=== PATIENT | female | born 2000 | race Caucasian/White ===

== ENCOUNTER 2022-11-27 22:36 | Emergency (ER) | payer BC ==
[2022-11-27 23:00] LABS: #Eosinphils 0.1 thou/uL (0.0-0.7); #Monocytes 0.7 thou/uL (0.11-0.59); #Neutrophils 3.7 thou/uL (1.40-6.50); %Basophils 0.5 % (0.0-1.0); %Eosinophils 1.9 % (0.0-10.0); %Lymphocytes 29.3 % (28.0-48.0); %Monocytes 10.4 % (0.0-4.0); %Neutrophils 57.7 % (31.0-61.0); Hemoglobin 12.4 g/dL (12.0-16.0); Mean Corpuscular HGB CONC 32.4 g/dL (32.0-36.0); Mean Corpuscular Hemoglobin 29.5 pg (25.0-35.0); Mean Corpuscular Volume 91.2 fl (78.0-98.0); Mean Platelet Volume 9.3 fL (7.4-10.4); Platelet Count 329 10x3/uL (130-400); RBC Distribution Width 12.8 % (11.5-14.5); White Blood Cell (WBC) Count 6.3 10x3/uL (4.8-10.8)
[2022-11-27 23:01] LABS: Bacteria/HPF None Seen HPF (None Seen); Bilirubin Negative (Negative); Blood, Urine Negative (Negative); CAUTI Indications for Culture Pelvic or flank pain; Clarity Clear (Clear); Glucose, Urine (Dipstick) Normal (Negative); Ketone, Urine Negative (Negative); Leukocyte Negative Leu/uL (Negative); Nitrite Negative (Negative); Protein, Urine (Dipstick) Negative (Neg-Trace); RBC/HPF 0-3 HPF (0-3); Specific Gravity, Urine 1.013 (1.002-1.036); Squamous Epithelial 0-3 HPF (0-3); Urobilinogen Normal mg/dL (Less than 2); WBC/HPF 0-3 HPF (0-3)
[2022-11-27 23:02] LABS: Pregnancy Test - Urine (BHCG) Negative (Negative); Pregu Control Background? CLEAR/WHITE (CLR/WHITE); Pregu Control Bar Appear? YES (CONTROL BAR); Specific Gravity 1.013 (1.002-1.036)
[2022-11-27 23:04] LABS: Urine Culture Reflex No No
[2022-11-27 23:22] LABS: ALT (SGPT) 30 U/L (8-55); AST (SGOT) 30 U/L (5-34); Albumin 4.4 g/dL (3.5-5.0); Alkaline Phosphatase 80 U/L (40-100); Anion Gap 11 mmol/L (10-20); BUN (Urea Nitrogen) 8 mg/dL (7.0-18.7); Bilirubin, Total 0.3 mg/dL (0.2-1.2); Calc. Creatinine Clearance 0 mL/min (70-130); Calcium 9.5 mg/dL (7.8-10.44); Carbon Dioxide 28 mmol/L (22-29); Chloride 106 mmol/L (98-107); Estimated GFR 128; Globulin 2.7 g/dL (2.4-3.5); Glucose 100 mg/dL (70-105); Potassium 3.6 mmol/L (3.5-5.1); Protein, Total 7.1 g/dL (6.0-8.3); Sodium 141 mmol/L (136-145)
[2022-11-28] MEDS ORDERED: Ibuprofen 200 MG TAB ONE (02:35)
== END 2022-11-28 02:48 | disposition home or self-care (01) ==
LOC: ERS 22:36
DX: R10.30 Lower abdominal pain, unspecified (principal); R11.0 Nausea
CPT/HCPCS: 36415; 80053; 81001; 81025; 85025; 99284

== ENCOUNTER 2024-05-12 07:15 | Inpatient (IN) | payer BC ==
[2024-05-12 08:41] VITALS: BMI 30.1
[2024-05-12] MEDS ORDERED: Acetaminophen 325 MG TAB PO PRN (10:45)
[2024-05-12] MEDS ORDERED: Sodium Chloride 0.9% 1,000 ML IV SCH (10:45)
[2024-05-12] MEDS ORDERED: Acetaminophen 650 MG Suppository PR PRN (10:45)
[2024-05-12] MEDS ORDERED: Ondansetron PF 4 MG/2 ML Vial IVP PRN (10:45)
[2024-05-12] MEDS ORDERED: Morphine 2 MG/ML VIAL SLOW IVP PRN (10:49)
[2024-05-12] MEDS ORDERED: Ondansetron PF 4 MG/2 ML Vial ONE (12:20)
[2024-05-12] MEDS ORDERED: fentaNYL 50 mcg/mL 1 mL Vial ONE ×2 (12:20→13:19)
[2024-05-12] MEDS ORDERED: PHENYLEPHRINE-NS 100 MCG/ML 10 ML SYRINGE ONE (12:20)
[2024-05-12] MEDS ORDERED: Dexamethasone 20 MG/5 ML VIAL ONE (12:20)
[2024-05-12] MEDS ORDERED: PROPOFOL 20 ML ONE (12:20)
[2024-05-12] MEDS ORDERED: Midazolam HCl 2 mg/2 ml Vial ONE (12:20)
[2024-05-12] MEDS ORDERED: Rocuronium Bromide 10 MG/ML (10ML VIAL) ONE (12:20)
[2024-05-12] MEDS ORDERED: GLYCOPYRROLATE/PF 0.2 MG/ML VIAL ONE (12:20)
[2024-05-12] MEDS ORDERED: Lidocaine 2% PF 5 ML VIAL ONE (12:20)
[2024-05-12] MEDS ORDERED: Indomethacin 50 MG SUPP ONE (12:26)
[2024-05-12] MEDS ORDERED: Iopamidol 30 ML ONE (12:28)
[2024-05-12] MEDS ORDERED: SUGAMMADEX SODIUM 200 MG/2 ML VIAL ONE (12:59)
[2024-05-12] MEDS ORDERED: Glycopyrrolate 0.2 MG/ML 5 ML SYRINGE ONE (13:28)
[2024-05-12] MEDS ORDERED: Albuterol HFA (OR) 200 PUFF INH ONE (13:28)
[2024-05-12] MEDS ORDERED: diphenhydrAMINE 50 MG/ML VIAL ONE (13:30)
[2024-05-12] MEDS ORDERED: Famotidine/PF 20 mg/2ml Vial ONE (14:44)
[2024-05-12] MEDS: Lactated Ringer's 1,000 ML IV SCH (16:23)
[2024-05-12] MEDS: Famotidine/PF 20 mg/2ml Vial SLOW IVP SCH (20:33)
[2024-05-13 04:59] LABS: #Basophils Less than 0.03 10x3/uL (0.0-0.2); %Basophils 0.3 % (0.0-1.0); %Eosinophils 1.8 % (0.0-10.0); %Lymphocytes 16.4 % (21.0-51.0); %Monocytes 7.8 % (0.0-10.0); %Neutrophils 73.4 % (42.0-75.0); Hematocrit 30.4 % (36.0-47.0); Hemoglobin 9.9 g/dL (12.0-16.0); Mean Corpuscular HGB CONC 32.6 g/dL (32.0-36.0); Mean Corpuscular Hemoglobin 28.9 pg (27.0-31.0); Mean Corpuscular Volume 88.6 fL (78.0-98.0); Platelet Count 328 10x3/uL (130-400); RBC Distribution Width 13.5 % (11.5-14.5); Red Blood Cell (RBC) Count 3.43 mill/uL (4.20-5.40)
[2024-05-13 05:25] LABS: Lipase 545 U/L (8-78)
[2024-05-13 06:56] LABS: ALT (SGPT) 366 U/L (8-55); AST (SGOT) 131 U/L (5-34); Albumin 2.8 g/dL (3.5-5.0); Alkaline Phosphatase 192 U/L (40-110); Anion Gap 11 mmol/L (10-20); BUN (Urea Nitrogen) 8 mg/dL (7.0-18.7); Bilirubin, Total 0.8 mg/dL (0.2-1.2); Calc. Creatinine Clearance 179 mL/min (70-130); Calcium 8.1 mg/dL (7.8-10.44); Carbon Dioxide 22 mmol/L (22-29); Chloride 110 mmol/L (98-107); Estimated GFR 130; Globulin 2.4 g/dL (2.4-3.5); Glucose 99 mg/dL (70-105); Potassium 3.8 mmol/L (3.5-5.1); Protein, Total 5.2 g/dL (6.0-8.3); Sodium 139 mmol/L (136-145)
[2024-05-13] MEDS: FLU (Fluarix Triv) TS24-25(6MOS UP)/PF 45 MCG/0.5 ML Syringe IM ONE (09:55)
[2024-05-14 05:17] LABS: #Basophils 0.03 10x3/uL (0.0-0.2); %Basophils 0.7 % (0.0-1.0); %Eosinophils 2.3 % (0.0-10.0); %Lymphocytes 20.9 % (21.0-51.0); %Monocytes 11.7 % (0.0-10.0); %Neutrophils 64.2 % (42.0-75.0); Hematocrit 29.7 % (36.0-47.0); Hemoglobin 9.6 g/dL (12.0-16.0); Mean Corpuscular HGB CONC 32.3 g/dL (32.0-36.0); Mean Corpuscular Hemoglobin 28.8 pg (27.0-31.0); Mean Corpuscular Volume 89.2 fL (78.0-98.0); Mean Platelet Volume 10.2 fL (7.4-10.4); Platelet Count 309 10x3/uL (130-400); RBC Distribution Width 13.4 % (11.5-14.5); Red Blood Cell (RBC) Count 3.33 mill/uL (4.20-5.40)
[2024-05-14 05:41] LABS: ALT (SGPT) 253 U/L (8-55); AST (SGOT) 61 U/L (5-34); Albumin 2.8 g/dL (3.5-5.0); Alkaline Phosphatase 165 U/L (40-110); Anion Gap 12 mmol/L (10-20); BUN (Urea Nitrogen) 4 mg/dL (7.0-18.7); Bilirubin, Total 0.7 mg/dL (0.2-1.2); Calc. Creatinine Clearance 219 mL/min (70-130); Calcium 8.1 mg/dL (7.8-10.44); Carbon Dioxide 22 mmol/L (22-29); Chloride 108 mmol/L (98-107); Estimated GFR 137; Globulin 2.5 g/dL (2.4-3.5); Glucose 100 mg/dL (70-105); Potassium 3.4 mmol/L (3.5-5.1); Protein, Total 5.3 g/dL (6.0-8.3); Sodium 139 mmol/L (136-145)
[2024-05-14] MEDS ORDERED: Bupivacaine 0.25% HCL 30 ML VIAL ONE (08:17)
[2024-05-14] MEDS ORDERED: EPINEPHrine 1 MG/ML VIAL ONE (08:17)
[2024-05-14] MEDS ORDERED: Lidocaine 2% PF 5 ML VIAL ONE (08:47)
[2024-05-14] MEDS ORDERED: fentaNYL PF 100 MCG/2 ML SYRINGE ONE ×2 (08:47→10:42)
[2024-05-14] MEDS ORDERED: PROPOFOL 20 ML ONE (08:47)
[2024-05-14] MEDS ORDERED: Rocuronium Bromide 10 MG/ML (10ML VIAL) ONE (08:48)
[2024-05-14] MEDS ORDERED: CEFAZOLIN 2 GM VIAL ONE (09:19)
[2024-05-14] MEDS ORDERED: Promethazine HCl 25 MG/ML VIAL ONE (09:35)
[2024-05-14] MEDS ORDERED: Dexamethasone 20 MG/5 ML VIAL ONE (09:57)
[2024-05-14] MEDS ORDERED: Ondansetron PF 4 MG/2 ML Vial ONE (09:57)
[2024-05-14] MEDS ORDERED: Ketorolac Tromethamine 30 MG (1 mL) VIAL ONE (09:57)
[2024-05-14] MEDS ORDERED: SUGAMMADEX SODIUM 200 MG/2 ML VIAL ONE (10:38)
[2024-05-14 12:28] VITALS: BP 114/76; TEMP 97.5
[2024-05-14] MEDS: traMADol HCl 50 MG TAB PO SCH (13:33)
== END 2024-05-14 16:20 | disposition home or self-care (01) | DRG 417 ==
LOC: SURG A 07:15
PROVIDERS: ADMIT Internal Medicine; ATTEND Internal Medicine
PROC: 0F798DZ Dilation of Common Bile Duct with Intraluminal Device, Via Natural or Artificial Opening Endoscopic (ICD-10-PCS; principal; 2024-05-12)
PROC: BF131ZZ Fluoroscopy of Gallbladder and Bile Ducts using Low Osmolar Contrast (ICD-10-PCS; 2024-05-12)
PROC: 0FT44ZZ Resection of Gallbladder, Percutaneous Endoscopic Approach (ICD-10-PCS; 2024-05-14)
DX: K80.20 Calculus of gallbladder without cholecystitis without obstruction (principal); K85.10 Biliary acute pancreatitis without necrosis or infection
CPT/HCPCS: 36415; 74330; 76705; 80053; 81001; 83690; 84703; 85025; 88304; 90656; 96361; 96365; 96375; C1889; J0171; J0665; J0696; J1100; J1200; J1885; J2250; J2272; J2405; J2550; J2704; J3010; J3490; J7120; Q9967